=== PATIENT | male | born 1965 | race Caucasian/White ===

== ENCOUNTER 2022-09-20 13:54 | Emergency (ER) | payer OTHER, SELFPAY ==
--- NOTE | 2022-09-20 14:00 | DI.RAD_ITS ---
Exam(s) XR SHOULDER RT COMPLETE 2+V EXAM: XR SHOULDER RT COMPLETE 2+V CLINICAL HISTORY: fall, pain. TECHNIQUE: 2D digital imaging was performed. Five views. COMPARISON: No exams were available for comparison FINDINGS: BONES: Fracture of the distal clavicle with overriding of fracture fragments. Tiny comminuted fragme nt. No bony destructive lesion is seen. JOINTS: No dislocation present. SOFT TISSUE: Normal. IMPRESSION: Distal clavicle fracture. DATA REPOSITORY: RADIATION DOSE DELIVERED:
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
[2022-09-20 14:03] VITALS: BP 128/84; PULSE 86; RESP 17; TEMP 36.7; O2SAT 98
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
[2022-09-20] MEDS: Ibuprofen 600 MG TAB PO (15:25)
[2022-09-20 15:40] VITALS: BP 121/84; PULSE 72; RESP 16; O2SAT 99
--- NOTE | 2022-09-21 09:03 | NUR.NOTE ---
Nursing Note: Accessed chart for [facility] billing purposes.
== END 2022-09-20 15:42 | disposition home or self-care (01) ==
PROVIDERS: Emergency Provider Emergency Medicine
DX: M25.511 Pain in right shoulder (principal); S42.031A Displaced fracture of lateral end of right clavicle, initial encounter for closed fracture; S20.20XA Contusion of thorax, unspecified, initial encounter; S81.011A Laceration without foreign body, right knee, initial encounter; V18.4XXA Pedal cycle driver injured in noncollision transport accident in traffic accident, initial encounter; Y93.55 Activity, bike riding; Y92.89 Other specified places as the place of occurrence of the external cause
CPT/HCPCS: 99284; 71046; 73030; 99283